=== PATIENT | female | born 1995 | race Caucasian/White ===

== ENCOUNTER 2020-01-28 20:49 | Emergency (ER) | payer SELFPAY ==
[~2020-01-28 20:49] MED LIST: Iopamidol 370 76% 100 ML VIAL ONE
[2020-01-28] MEDS ORDERED: Ondansetron PF 4 MG/2 ML Vial ONE (22:23)
[2020-01-28] MEDS ORDERED: Morphine 4 MG/ML VIAL ONE (22:23)
[2020-01-28 22:37] LABS: #Basophils 0.1 thou/uL (0.0-0.2); #Lymphocytes 1.8 thou/uL (1.20-3.40); #Monocytes 0.7 thou/uL (0.11-0.59); #Neutrophils 4.6 thou/uL (1.40-6.50); %Eosinophils 0.6 % (0.0-10.0); %Lymphocytes 25.1 % (21.0-51.0); %Monocytes 9.6 % (0.0-10.0); %Neutrophils 63.7 % (42.0-75.0); Hemoglobin 14.6 g/dL (12.0-16.0); Mean Corpuscular HGB CONC 31.6 g/dL (32.0-36.0); Mean Corpuscular Hemoglobin 29.2 pg (27.0-31.0); Mean Corpuscular Volume 92.4 fL (78.0-98.0); Mean Platelet Volume 8.6 fL (7.4-10.4); Platelet Count 198 thou/uL (130-400); RBC Distribution Width 13.1 % (11.5-14.5); White Blood Cell (WBC) Count 7.3 thou/uL (4.8-10.8)
[2020-01-28 22:40] LABS: Bilirubin Negative (Negative); Blood, Urine Negative (Negative); Glucose, Urine (Dipstick) Negative (Negative); Leukocyte Trace (Negative); Nitrite Negative (Negative); Pregnancy Test - Urine (BHCG) Negative (Negative); Pregu Control Background? CLEAR/WHITE (CLR/WHITE); Pregu Control Bar Appear? YES (CONTROL BAR); Protein, Urine (Dipstick) Negative (Neg-Trace); Specific Gravity 1.023 (1.002-1.036); Urobilinogen 0.2 mg/dL (Less than 2)
[2020-01-28 22:41] LABS: Clarity Hazy (Clear)
[2020-01-28] MEDS ORDERED: Dextrose 50% Abboject 50 ML SYRINGE ONE (22:46)
[2020-01-28 22:47] LABS: Bacteria/HPF 1+ HPF (None Seen); RBC/HPF 0-3 HPF (0-3); Squamous Epithelial 0-3 HPF (0-3)
[2020-01-28 22:48] LABS: ALT (SGPT) 16 U/L (8-55); AST (SGOT) 17 U/L (5-34); Albumin 4.5 g/dL (3.5-5.0); Alkaline Phosphatase 67 U/L (40-110); Anion Gap 12 mmol/L (10-20); BUN (Urea Nitrogen) 12 mg/dL (7.0-18.7); Bilirubin, Total 0.3 mg/dL (0.2-1.2); Calc. Creatinine Clearance 0 mL/min (70-130); Calcium 9.6 mg/dL (7.8-10.44); Carbon Dioxide 27 mmol/L (22-29); Chloride 106 mmol/L (98-107); Estimated GFR-MDRD 86; Globulin 2.9 g/dL (2.4-3.5); Lipase 38 U/L (8-78); Potassium 4.1 mmol/L (3.5-5.1); Protein, Total 7.4 g/dL (6.0-8.3); Sodium 141 mmol/L (136-145)
[2020-01-28 22:48] LABS: Mucous/LPF 1+ LPF (<2+)
[2020-01-28 22:49] LABS: Glucose 54 mg/dL (70-105)
[2020-01-28] MEDS ORDERED: HYDROcodone/Acetaminophen 5/325 mg Tablet ONE (23:35)
--- NOTE | 2020-01-29 08:27 | CT ---
CT ABDOMEN AND PELVIS WITH CONTRAST: Date: 02/04/[address] of the abdomen and pelvis was done with IV contrast. Axial slices were acquired, then coron al and sagittal reconstructions were done in this patient with right lower quadrant pain. Comparison with the 02/03/2011 study. FINDINGS: The lung bases are clear. The liver, spleen, pancreas, kidneys, adrenal glands, and abdominal aorta a ppear normal. There has been a prior cholecystectomy. The stomach is rather full of foodstuff. The bowel is not distended. There are a few loops of proxima l small bowel that are slightly fluid-filled and they have marginally thickened art such as one nia ht see in enteritis, but this probably would not explain right lower quadrant and suprapubic pain. Th ere is no free air or free fluid. No inflammatory changes are seen in or around the colon. CT of the pelvis shows a bicornuate uterus. There appears to be an elongated cyst in the right ovary that is about 3.3 x 1.7 cm wide. No fluid is seen around it. No free fluid or inflammatory change is seen in the pelvis. IMPRESSION: 1. 3.3 cm right ovarian cyst which may or may not be of significance. 2. Slight thickening of a few loops of proximal small bowel that are also fluid-filled. It is unknow n if this is significant or not giving it being remote in location from the site of current pain. 3. Bicornuate uterus. Findings discussed with Dr. Ziegler at 2305 hours on 01/28/2020. CODE CR. POS: HOME
== END 2020-01-28 23:57 | disposition home or self-care (01) ==
LOC: BURERS 20:49
DX: N83.201 Unspecified ovarian cyst, right side (principal); J45.909 Unspecified asthma, uncomplicated; F41.9 Anxiety disorder, unspecified; F32.9 Major depressive disorder, single episode, unspecified; F17.290 Nicotine dependence, other tobacco product, uncomplicated; Z79.899 Other long term (current) drug therapy
CPT/HCPCS: 36416; 74177; 80053; 81003; 81015; 81025; 83690; 85025; 87480; 87491; 87510; 87591; 87660; 96361; 96374; 96375; J2270; J2405; Q9967

== ENCOUNTER 2020-03-31 20:16 | Emergency (ER) | payer SELFPAY ==
[2020-03-31] MEDS ORDERED: Acetaminophen/Codeine 30-300mg Tablet ONE (20:48)
== END 2020-03-31 21:30 | disposition home or self-care (01) ==
LOC: BURERS 20:16
DX: S33.8XXA Sprain of other parts of lumbar spine and pelvis, initial encounter (principal); F41.9 Anxiety disorder, unspecified; F32.9 Major depressive disorder, single episode, unspecified; J45.909 Unspecified asthma, uncomplicated; F17.290 Nicotine dependence, other tobacco product, uncomplicated; Z79.899 Other long term (current) drug therapy; W01.0XXA Fall on same level from slipping, tripping and stumbling without subsequent striking against object, initial encounter
CPT/HCPCS: 99283

== ENCOUNTER 2020-10-15 13:01 | Emergency (ER) | payer OTHER, SELFPAY ==
[2020-10-15] MEDS ORDERED: traMADol HCl 50 MG TAB ONE (13:47)
[2020-10-15] MEDS ORDERED: Bacitracin 1 PK ONE (13:47)
--- NOTE | 2020-10-15 16:55 | RAD ---
LEFT SHOULDER FOUR VIEWS: 10/15/20 No fracture, dislocation, or AC joint widening was seen. The visible adjacent ribs appear intact. IMPRESSION: No acute finding. POS: HOME
== END 2020-10-15 13:51 | disposition home or self-care (01) ==
LOC: BURERS 13:01
DX: S40.012A Contusion of left shoulder, initial encounter (principal); J45.909 Unspecified asthma, uncomplicated; F17.290 Nicotine dependence, other tobacco product, uncomplicated; V89.2XXA Person injured in unspecified motor-vehicle accident, traffic, initial encounter